=== PATIENT | male | born 1985 | race Caucasian/White ===

== ENCOUNTER 2018-03-03 18:57 | Inpatient (IN) | payer OTHER ==
[~2018-03-03] VITALS: Ht 185.4 cm; Wt 77.1 kg
[2018-03-03] MEDS ORDERED: DICY20TA (19:20)
== END 2018-03-09 14:00 | disposition home or self-care (01) | DRG 340 ==
LOC: ER 18:57 → SEC-K 03-04 00:16 → SURH 03-04 00:16
PROVIDERS: Surgery
PROC: 0DTJ4ZZ Resection of Appendix, Percutaneous Endoscopic Approach (ICD-10-PCS; principal; 2018-03-04 07:00)
DX: K35.33 Acute appendicitis with perforation, localized peritonitis, and gangrene, with abscess (principal); B96.29 Other Escherichia coli [E. coli] as the cause of diseases classified elsewhere

== ENCOUNTER 2018-03-31 16:50 | Emergency (ER) | payer OTHER ==
[~2018-03-31] VITALS: Ht 188 cm; Wt 77.1 kg
[~2018-03-31 16:50] MED LIST: DICY20TA
== END 2018-03-31 17:39 | disposition home or self-care (01) ==
LOC: ER 16:50
DX: K29.70 Gastritis, unspecified, without bleeding (principal)

== ENCOUNTER 2018-07-05 09:28 | Emergency (ER) | payer OTHER ==
[~2018-07-05] VITALS: Ht 188 cm; Wt 76.2 kg
== END 2018-07-05 15:54 | disposition home or self-care (01) ==
LOC: ER 09:28
DX: K40.90 Unilateral inguinal hernia, without obstruction or gangrene, not specified as recurrent (principal); I86.1 Scrotal varices

== ENCOUNTER 2018-08-10 05:25 | Day surgery (SDC) | payer OTHER ==
[2018-08-10] MEDS ORDERED: ULTRACET PO (13:38)
[2018-08-10] MEDS ORDERED: COLACE100 MG PO (13:39)
[2018-08-10] MEDS ORDERED: NEURONTIN300 MG PO (13:39)
== END 2018-08-10 16:10 | disposition home or self-care (01) ==
LOC: CIR.AMB 05:25
DX: K40.90 Unilateral inguinal hernia, without obstruction or gangrene, not specified as recurrent (principal)